=== PATIENT | female | born 1985 | race Hispanic/Latino ===

== ENCOUNTER 2018-06-28 06:56 | Outpatient (CLI) | payer BC | END 2018-06-28 06:57 | disposition home or self-care (01) | LOC: BICULT 06:56 | DX: E28.9 Ovarian dysfunction, unspecified (principal); E28.2 Polycystic ovarian syndrome; N83.8 Other noninflammatory disorders of ovary, fallopian tube and broad ligament | CPT/HCPCS: 36415; 76856; 82670; 83001; 83002; 84144; 84443; 84702 ==

== ENCOUNTER 2018-07-03 07:10 | Outpatient (CLI) | payer BC ==
[2018-07-03 12:40] LABS: Progesterone 0.6 ng/mL
== END 2018-07-03 07:11 | disposition home or self-care (01) ==
LOC: BICULT 07:10
DX: E28.9 Ovarian dysfunction, unspecified (principal)
CPT/HCPCS: 76856; 82670; 83002; 84144

== ENCOUNTER 2018-07-06 11:15 | Outpatient (CLI) | payer BC ==
[2018-07-06 13:20] LABS: Progesterone 1.2 ng/mL
--- NOTE | 2018-07-06 13:35 | ULT ---
PELVIC ULTRASOUND: HISTORY: Ovarian dysfunction. Count follicles. COMPARISON: None. TECHNIQUE: Transabdominal and endovaginal imaging of the pelvis is performed. The ovaries are interrogated with shook-scale, color-flow, Doppler imaging, and spectral wave-form analysis. FINDINGS: The uterus is identified, without myometrial masses. The uterus measures 4.5 x 5.8 x 10 cm. The endometrium has a slightly heterogeneous appearance, measuring 1.1 cm. The right ovary measures 4.6 x 2.6 x 3.7 cm. There are seven separate follicles present. The left o vary measures 4.4 x 3.4 x 2.9 cm. Three separate follicles are present. The largest follicle in the right ovary measures 1.5 x 1.4 x 1 cm. The largest follicle in the left ovary measures 2.1 x 1.5 x 1.6 cm. Right ovarian follicles are: 1.1 x 0.8 x 1.7 cm 1.5 x 1.4 x 1.0 cm 1.2 x 0.7 x 1.7 cm 1.2 x 1.0 x 1.1 cm 1.4 x 1.3 x 1.2 cm 1.1 x 1.5 x 1.5 cm 1.4 x 1.1 x 1.3 cm The left ovarian follicles are: 1.8 x 1.1 x 0.9 cm 0.9 x 0.8 x 0.9 cm 2.1 x 1.5 x 1.6 cm IMPRESSION: Seven right and three left ovarian follicles. POS: [facility]
[2018-07-06 14:43] LABS: Follow-up Chemistry Comp? YES; Follow-up Result - Chemistry REPORT FAXED
== END 2018-07-06 11:16 | disposition home or self-care (01) ==
LOC: SCSULT 11:15
DX: E28.9 Ovarian dysfunction, unspecified (principal)
CPT/HCPCS: 36415; 76856; 82670; 83002; 84144

== ENCOUNTER 2018-09-04 06:42 | Outpatient (CLI) | payer BC ==
--- NOTE | 2018-09-04 10:01 | ULT ---
TRANSVAGINAL PELVIC ULTRASOUND: INDICATION: History of ovarian dysfunction. COMPARISON: Prior exam dated 07/06/2018. FINDINGS: Asif scale, color Doppler, an spectral Doppler images were obtained. The uterus measured 5.4 x 4.7 x 4.1 cm. There is a mild to moderate amount of free fluid in the cul- de-sac. The endometrial stripe measured 1 cm. The right ovary measured 5.1 x 3.3 x 2.7 cm. There are multiple right-sided follicular cysts. The l argest measured up to 2 cm. Ten separate follicles were present within the right ovary. The larges t again measured 2.0 x 1.6 x 1.7 cm. The follicles ranged in size from: 0.7 x 0.6 x 0.8 cm. 1.1 x 0.8 x 1.2 cm. 0.9 x 0.7 x 0.6 cm. 0.6 x 0.4 x 0.6 cm. 0.9 x 0.8 x 1.0 cm. 0.6 x 0.4 x 0.6 cm. 0.8 x 0.4 x 1.0 cm. 1.1 x 0.5 x 0.9 cm. 1.0 x 0.8 x 1.1 cm. 2.0 x 1.6 x 1.7 cm. The left ovary measured 2.8 x 2.6 x 1.9 cm. There is normal flow to the left ovary. There are 7 sep arate follicles present within the left ovary. The largest within the left ovary measured 1.0 x 0.5 x 1.0 cm. The follicles ranged in size from: 1.0 x 0.5 x 1.0 cm. 0.8 x 0.8 x 0.7 cm. 0.7 x 0.4 x 0.7 cm. 0.8 x 0.5 x 0.7 cm. 0.7 x 0.4 x 0.8 cm. 0.6 x 0.6 x 0.7 cm. 0.8 x 0.5 x 0.6 cm. IMPRESSION: Bilateral ovarian follicles as above. Mild to moderate free fluid in the pelvis. POS: [facility]
== END 2018-09-04 06:43 | disposition home or self-care (01) ==
LOC: BICULT 06:42
PROVIDERS: ATTEND Obstetrics & Gynecology Reproductive Endocrinology
DX: E28.9 Ovarian dysfunction, unspecified (principal)
CPT/HCPCS: 36415; 76856; 82670; 83002; 84144

== ENCOUNTER 2019-08-03 08:36 | Inpatient (IN) | payer BC ==
[2019-08-03 09:18] VITALS: BMI 23.3
[2019-08-03] MEDS ORDERED: Acetaminophen 500 MG TAB PO PRN (09:26)
[2019-08-03] MEDS ORDERED: Butorphanol Tartrate 1 MG/ML VIAL SLOW IVP PRN (09:26)
[2019-08-03] MEDS ORDERED: Promethazine HCl 25 MG/ML VIAL IM PRN ×2 (09:26→14:37)
[2019-08-03] MEDS ORDERED: Misoprostol 200 MCG TAB PR PRN (09:26)
[2019-08-03] MEDS ORDERED: HYDROcodone/Acetaminophen 5/325 mg Tablet PO PRN ×3 (09:26→22:28)
[2019-08-03] MEDS ORDERED: NS / Oxytocin 40 units/1000ml 1,000 ML IV PRN (09:26)
[2019-08-03] MEDS ORDERED: hydrALAZINE 20 MG/ML VIAL SLOW IVP PRN ×2 (09:26→22:28)
[2019-08-03] MEDS ORDERED: Carboprost 250 MCG/ML AMP IM PRN (09:26)
[2019-08-03] MEDS ORDERED: Lidocaine 1% (PF) 30 ML VIAL SC PRN (09:26)
[2019-08-03] MEDS ORDERED: Diphenoxylate HCl/Atropine Tablet PO PRN (09:26)
[2019-08-03] MEDS ORDERED: Ibuprofen 800 MG TAB PO PRN (09:26)
[2019-08-03] MEDS ORDERED: Ondansetron PF 4 MG/2 ML Vial IVP PRN ×3 (09:26→22:28)
[2019-08-03] MEDS ORDERED: Methylergonovine 0.2 MG/ML VIAL IM PRN (09:26)
[2019-08-03] MEDS ORDERED: Penicillin G Potassium 5 MILL.UNITS in Sodium Chloride 0.9% 100 ML IVPB SCH (09:30)
--- NOTE | 2019-08-03 09:39 | PDOC.LDHP ---
Labor and Delivery H&P Allergies/Adverse Reactions: Allergies Allergy/AdvReac Type Severity Reaction Status Date / Time No Known Allergies Allergy Verified 08/03/19 09:13
--- NOTE | 2019-08-03 09:39 | PDOC.LDHP ---
Labor and Delivery H&P Chief complaint: contractions HPI: 34yo at 39w5d by LMP here for painful ctx since 11pm last night q 2-5 min. No LOF VB. Current gestational age (weeks): 39 Due date: 08/05/19 Dating criteria: last menstrual period Grav: 1 Para: 0 Current complications: gestational diabetes (diet controlled) Abnormal US findings: No Current medications: pre- vitamins, iron Previous surgical history: none Allergies/Adverse Reactions: Allergies Allergy/AdvReac Type Severity Reaction Status Date / Time No Known Allergies Allergy Verified 08/03/19 09:13 Social history: none - Physical Exam Vital signs reviewed and normal: yes General: NAD Heart: RRR Lungs: CTAB Abdomen: gravid Extremeties: no edema FHT: category 1 Ages contractions every: 3-5min - Vaginal Exam cm dilated: 5 Effacement: 90% Station: -1 - OB Labs RH: negative Antibody Screen: positive HIV: negative RPR: negative HEPSAg: negative 1 hour GCT: positive 3 hour GTT: positive for GDM GBS: positive Urine drug screen: negative Rubella: immune - Assessment L&D Assessment: term patient in labor - Plan Plan: admit to L&D, labor augmentation if indicated, GBS antibiotic prophylaxis , informed consent obtained, anesthesia consult for pain management
[2019-08-03] MEDS ORDERED: FLU VACC QS2019-20(6MOS UP)/PF 60 MCG/0.5 ML SYRINGE IM ONE (10:00)
[2019-08-03] MEDS: Lactated Ringer's 1,000 ML IV SCH ×2 (10:23→14:26)
[2019-08-03 10:55] LABS: Hemoglobin 12.5 g/dL (12.0-16.0); Mean Corpuscular HGB CONC 34.4 g/dL (32.0-36.0); Mean Corpuscular Hemoglobin 29.5 pg (27.0-31.0); Mean Corpuscular Volume 85.6 fL (78.0-98.0); Mean Platelet Volume 10.5 fL (7.4-10.4); Platelet Count 106 thou/uL (130-400); RBC Distribution Width 20.1 % (11.5-14.5); Red Blood Cell (RBC) Count 4.24 mill/uL (4.20-5.40); White Blood Cell (WBC) Count 8.6 thou/uL (4.8-10.8)
[2019-08-03 11:05] LABS: HBSAg Index 0.25 S/CO (0-0.99); Hep B Surf Ag Non-Reactive S/CO (NonReactive)
[2019-08-03 11:25] LABS: Syphilis Antibody Nonreactive (Nonreactive); Syphilis Antibody Index 0.02 S/CO (<1.00 Non-Reactive)
[2019-08-03] MEDS ORDERED: Fentanyl 4 mcg/Bup 0.1% Cadd 100 ML ONE (13:32)
[2019-08-03] MEDS: Penicillin G 2.5 MILL.units 2.5 MILL.UNITS in Premix Bag 1 BAG IVPB SCH ×4 (14:26→21:30)
[2019-08-03] MEDS ORDERED: Lactated Ringer's 500 ML IV PRN (14:37)
[2019-08-03] MEDS ORDERED: diphenhydrAMINE 50 MG/ML VIAL IVP PRN (14:37)
[2019-08-03] MEDS ORDERED: Acetaminophen 325 MG TAB PO PRN (14:37)
[2019-08-03] MEDS ORDERED: ePHEDrine/0.9% NaCl/PF SYRINGE 50 mg/10 ml SLOW IVP PRN (14:37)
[2019-08-03] MEDS ORDERED: Naloxone HCl 0.4 mg/ml Vial IVP PRN ×2 (14:37)
[2019-08-03] MEDS ORDERED: Fentanyl 4 mcg/Bupivacaine 0.1% Cassette 100 ML EPIDURAL SCH (14:45)
[2019-08-03] MEDS ORDERED: Communication Order-Pharmacy FS SCH (14:45)
--- NOTE | 2019-08-03 20:17 | PDOC.OPDEL ---
OB Operative/Delivery Note Delivery Dr/Surgeon: ZACHARY Pre-Delivery Diagnosis: active labor Procedure/Post Delivery Dx: spontaneous vaginal delivery Weeks gestation: 39 Anesthesia: epidural (W LOCAL FOR PERINEAL REPAIR) - Findings A Sex: female - 1 min: 9 - 5 min: 9 - Additional Findings/Plan Placenta delivered: spontaneous Repaired Obstetrical Laceration: 2nd degree Estimated blood loss: 300ML QBL PENDING Post delivery plan: routine recovery
[2019-08-03] MEDS ORDERED: Milk Of Magnesia 30 ML UDCUP PO PRN (22:28)
[2019-08-03] MEDS ORDERED: Preparation H Ointment 28 GM TUBE PR PRN (22:28)
[2019-08-03] MEDS ORDERED: Adacel (T-DAP) 0.5 ML SYRINGE IM ONE (22:28)
[2019-08-03] MEDS ORDERED: diphenhydrAMINE 25 MG CAP PO PRN (22:28)
[2019-08-03] MEDS ORDERED: Lanolin Ointment 7 GM TUBE TOP PRN (22:28)
[2019-08-03] MEDS ORDERED: NS / Oxytocin 40 units/1000ml 1,000 ML IV SCH (22:28)
[2019-08-03] MEDS ORDERED: Benzocaine-Menthol 82.5 ML CAN TOP PRN (22:28)
[2019-08-03] MEDS ORDERED: Bisacodyl 10 MG SUPP PR PRN (22:28)
[2019-08-03] MEDS ORDERED: Docusate Calcium (SURFAK) 240 MG CAP PO SCH (22:45)
[2019-08-03] MEDS: Ibuprofen 800 MG TAB PO SCH (23:30)
[2019-08-04] MEDS: Ibuprofen 800 MG TAB PO SCH ×3 (06:33→21:29)
--- NOTE | 2019-08-04 07:19 | PDOC.PP ---
Post Progress Note Post Day #: 0 PO intake tolerated: yes Flatus: yes Ambulation: yes Vital Signs (12 hours) Temp Pulse Resp BP Pulse Ox 08/04/19 01:05 98.6 F 60 16 115/68 99 08/03/19 23:40 98.5 F 72 20 108/64 99 08/03/19 22:45 98.6 F 72 20 110/55 L 99 Weight Weight 136 lb - Physical Examination General: NAD Cardiovascular: no m/r/g, RRR Respiratory: clear to auscultation bilaterally Abdominal: + bowel sounds, lochia, no distention Extremities: negative homans (B) Neurological: no gross focal deficits Psychiatric: A&Ox3 Result Diagrams: 08/03/19 10:12 Additional Labs: Post Labs Blood Type O NEGATIVE 08/03/19 12:10 Hep Bs Antigen Non-Reactive S/CO (NonReactive) 08/03/19 10:12
--- NOTE | 2019-08-04 07:45 | PRG ---
DATE OF SERVICE: 08/04/2019 TIME OF SERVICE: 0715 hours. SUBJECTIVE: Ms. Samson is a G1, now P1, approximately 11 hour status post spontaneous vaginal delivery by Dr. Rene Bermudez. She is resting comfortably and has no complaints. OBJECTIVE: VITAL SIGNS: Temperature 98.6, pulse 60, respirations 16, blood pressure 115/68. HEENT: Within normal limits. LUNGS: Clear to auscultation bilaterally. ABDOMEN: Soft and nontender. Fundus is firm. Umbilicus -4. Normal lochia. EXTREMITIES: No clubbing, cyanosis, or edema. IMPRESSION: Doing well status post normal spontaneous vaginal delivery, day #0 to 1. PLAN: Routine care, anticipate possible late 08/05 discharge versus 08/06 discharge. Job ID: [id number]
[2019-08-04] MEDS: Ferrous Sulfate 325 MG TAB PO SCH ×2 (08:34→16:40)
[2019-08-04] MEDS: Docusate Calcium (SURFAK) 240 MG CAP PO SCH ×2 (08:36→21:29)
[2019-08-04] MEDS ORDERED: Prenatal Vitamin 1 TAB PO SCH (09:00)
[2019-08-05] MEDS: Ibuprofen 800 MG TAB PO SCH (06:20)
--- NOTE | 2019-08-05 06:21 | PDOC.PP ---
Post Progress Note Post Day #: PPD1 Subjective: Resting. Concerned 'milk has'nt come in". PO intake tolerated: yes Flatus: yes Ambulation: yes Vital Signs (12 hours) Temp Pulse Resp BP Pulse Ox 08/05/19 04:05 98.3 F 68 16 102/63 100 08/05/19 01:20 98.5 F 66 16 100/57 L 100 08/04/19 20:25 98.2 F 72 20 105/60 100 Weight Weight 61.689 kg - Physical Examination General: NAD Respiratory: non-labored breathing Neurological: no gross focal deficits Psychiatric: normal affect Result Diagrams: 08/03/19 10:12 Additional Labs: Post Labs Blood Type O NEGATIVE 08/03/19 12:10 Hep Bs Antigen Non-Reactive S/CO (NonReactive) 08/03/19 10:12 - Assessment/Plan Doing well post . Needs Consult- ordered. Possible home this pm.
[2019-08-05 12:12] VITALS: BP 100/56; TEMP 98
--- NOTE | 2019-08-05 12:38 | PDOC.PP ---
Post Progress Note Post Day #: 2 Subjective: Pt doing well. Pain is very mild. Minimal lochia. Baby is latching well but she is concerned with "Not having much milk yet". PT is scheduled to have consultation this afternoon. She has been up and ambulatory this morning and voiding without difficulty. PO intake tolerated: yes Flatus: yes Ambulation: yes Vital Signs (12 hours) Temp Pulse Resp BP Pulse Ox 08/05/19 12:00 98.0 F 69 20 100/56 L 08/05/19 08:00 98.6 F 61 20 102/54 L 100 08/05/19 04:05 98.3 F 68 16 102/63 100 08/05/19 01:20 98.5 F 66 16 100/57 L 100 Weight Weight 136 lb - Physical Examination General: NAD Respiratory: non-labored breathing Abdominal: + bowel sounds, lochia, no distention, appropriately TTP Fundus firm & at: 1 cm below umbilicus Extremities: negative homans (B) Neurological: no gross focal deficits Psychiatric: A&Ox3, normal affect Result Diagrams: 08/03/19 10:12 Additional Labs: Post Labs Blood Type O NEGATIVE 08/03/19 12:10 Hep Bs Antigen Non-Reactive S/CO (NonReactive) 08/03/19 10:12 - Assessment/Plan Pt doing well on PPD2. Pt is breast feeding and awaiting consultation. Plan to discharge later this evening after consultation. Continue routine PP care. Pt will follow up in in office in 6 weeks. Rx for ibuprofen has been sent to the pharmacy.
== END 2019-08-05 17:12 | disposition home or self-care (01) | DRG 807 ==
LOC: L&D/OP 08:36 → L&D-LIB 09:33 → L&D 21:21 → 3SE 23:05
PROVIDERS: ADMIT Obstetrics & Gynecology; ATTEND Obstetrics & Gynecology
PROC: 10E0XZZ Delivery of Products of Conception, External Approach (ICD-10-PCS; principal; 2019-08-03)
PROC: 0KQM0ZZ Repair Perineum Muscle, Open Approach (ICD-10-PCS; 2019-08-03)
DX: O24.420 Gestational diabetes mellitus in childbirth, diet controlled (principal); Z37.0 Single live birth; O70.1 Second degree perineal laceration during delivery; O99.824 Streptococcus B carrier state complicating childbirth; Z3A.39 39 weeks gestation of pregnancy; O26.893 Other specified pregnancy related conditions, third trimester; Z67.91 Unspecified blood type, Rh negative
CPT/HCPCS: 36415; 36416; 85027; 85461; 86780; 86850; 86870; 86900; 86901; 87340; 90384; 96372; J2001; J2540; J3490